=== PATIENT | female | born 2005 | race Caucasian/White ===

== ENCOUNTER 2025-05-26 08:03 | Emergency (ER) | payer OTHER ==
[~2025-05-26] VITALS: Ht 160 cm; Wt 60.0 kg
[2025-05-26 10:46] VITALS: BP 122/75; TEMP 96.7; O2SAT 100
[2025-05-26] MEDS ORDERED: BENZ200C70 PO (10:46)
[2025-05-26] MEDS ORDERED: ZITHTAB PO (10:46)
== END 2025-05-26 10:52 | disposition home or self-care (01) ==
LOC: M ED 08:03
DX: J06.9 Acute upper respiratory infection, unspecified (principal); Z88.0 Allergy status to penicillin